=== PATIENT | female | born 2005 | race Caucasian/White ===

== ENCOUNTER → 2023-09-27 | Day surgery (SDC) | payer BC ==
[~2023-09-27] MED LIST: Gadobenate Dimeglumine 2 ML, Sodium Chloride 0.9% 250 ML 10 ML, Iopamidol 8 ML, Lidocai... FS SCH; Sodium Bicarbonate 2.5 MEQ/5 ML SDV ONE
== END ==
LOC: RAD 08:51
PROVIDERS: ATTEND Orthopaedic Surgery
PROC: BP39YZZ Magnetic Resonance Imaging (MRI) of Left Shoulder using Other Contrast (ICD-10-PCS; principal; 2023-09-27)
DX: S43.431A Superior glenoid labrum lesion of right shoulder, initial encounter (principal); X58.XXXA Exposure to other specified factors, initial encounter
CPT/HCPCS: 23350; 77002; A9577; J0171; J7050; Q9967